=== PATIENT | female | born 1975 | race Caucasian/White ===

== ENCOUNTER → 2019-10-04 | Outpatient (CLI) | payer BC, OTHER | END | disposition home or self-care (01) | LOC: LABWHC1 09:22 | PROVIDERS: ATTEND Emergency Medicine | DX: Z20.828 Contact with and (suspected) exposure to other viral communicable diseases (principal) | CPT/HCPCS: U0003; C9803 ==

== ENCOUNTER → 2020-07-01 | Outpatient (CLI) | payer BC | LOC: CPPFTMAIN 13:09 | PROVIDERS: ATTEND Family Medicine | DX: R06.2 Wheezing (principal); R06.02 Shortness of breath; R51.9 Headache, unspecified; Z86.16 Personal history of COVID-19 | CPT/HCPCS: 94060; 94726; 94729 ==

== ENCOUNTER → 2024-03-09 | Outpatient (CLI) | payer OTHER ==
--- NOTE | 2024-03-12 09:28 | MM ---
Reason for Exam: Screening (asymptomatic). Last mammogram was performed 1 year(s) and 2 month(s) ago. Patient History: Menarche at age 14. First Full-Term at age 21. Premenopausal. Hormonal Contraceptives, from age 18 until age 27. Maternal grandmother had breast cancer, age 70. Risk Values: Tri 5 year model risk: 0.6%. NCI Lifetime model risk: 6.9%. Prior Study Comparison: 09/30/2020 Bilateral Screening Mammogram, [facility]. 02/02/2023 Bilateral Screening Mammogram, [facility]. Tissue Density: The breasts are heterogeneously dense, which may obscure small masses. Findings: Analyzed By CAD. Bilateral breast implants appear intact. Right breast: There is no suspicious group of microcalcifications or new suspicious mass. Left breast: There is no suspicious group of microcalcifications or new suspicious mass. Overall Assessment: Negative, BI-RAD 1 Management: Screening Mammogram of both breasts in [address] [facility] will attempt to contact patient to return for supplemental views and ultrasound if indicated. Patient should continue monthly self-breast exams. A clinical breast exam by your physician is recommended on an annual basis. This exam should not preclude additional follow-up of suspicious palpable abnormalities. Note on Tri scores and lifetime risk: 1. A Tri score greater than 3% is considered moderate risk. If this is the case, consider specialist referral to assess eligibility for a risk reducing agent. 2. If overall lifetime risk for the development of breast cancer is 20% or higher, the patient may qualify for future screening with alternating mammogram and breast MRI. [facility], , 03/12/2024 9:04 AM. Electronically signed and approved by: Clint De Jesus DO
== END | disposition home or self-care (01) ==
LOC: RADMAMWWP 11:13
PROVIDERS: ATTEND Family Medicine
DX: Z12.31 Encounter for screening mammogram for malignant neoplasm of breast (principal); Z80.3 Family history of malignant neoplasm of breast; R92.333 Mammographic heterogeneous density, bilateral breasts; Z98.82 Breast implant status
CPT/HCPCS: 77067